=== PATIENT | female | born 2000 | race Caucasian/White ===

== ENCOUNTER 2024-06-05 10:44 | Outpatient (CLI) | payer BC, SELFPAY ==
--- NOTE | ~2024-06-05 | US_ITS ---
US breast BI complete INDICATION: White nipple discharge. No family history of breast cancer. TECHNIQUE: Dedicated bilateral complete breast ultrasound including all 4 quadrants in the subareolar locations COMPARISON: No prior studies for comparison. FINDINGS: The breasts are composed of normal heterogeneous echotexture without focal solid or cystic mass. IMPRESSION: 1: Normal bilateral breast ultrasound. BI-RADS CATEGORY 1 - NEGATIVE Reviewed, dictated and finalized at location B.
== END 2024-06-05 10:45 ==
PROVIDERS: PCP Nurse Practitioner; Visit Provider Nurse Practitioner
DX: N64.52 Nipple discharge (principal)
CPT/HCPCS: 76641

== ENCOUNTER 2024-08-11 08:43 | Outpatient (CLI) | payer BC, SELFPAY ==
[2024-08-15 00:38] LABS: Prolactin 14.6 ng/mL
== END 2024-08-11 08:44 | disposition home or self-care (01) ==
PROVIDERS: PCP Nurse Practitioner; Visit Provider Surgery
DX: N64.3 Galactorrhea not associated with childbirth (principal)
CPT/HCPCS: 36415; 84146; 84443

== ENCOUNTER 2024-12-16 18:39 | Emergency (ER) | payer OTHER, SELFPAY ==
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
[2024-12-16 19:00] VITALS: BP 111/70; PULSE 96; RESP 18; TEMP 36.8; O2SAT 100
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
[2024-12-16] MEDS: IBUPROFEN 600 MG TABLET PO (20:01)
[2024-12-16 20:32] VITALS: BP 115/71; PULSE 92; RESP 17; O2SAT 99
--- OUTSIDE RECORDS SUMMARY | 2024-12-18 20:21 | XMS_ITS | Data Portability ---
Author Organization [facility] Address [address] [place] [address] Assessment No assessment recorded. Plan of Treatment Reminders Order Date Submit Date Provider Last Modified By Organization Details Last Modified Time Details Appointments None recorded. Lab prolactin, serum 2023 [facility] (Lab), [address], [place], [address], 4 11:59:07 beta-HCG, quantitati ve, serum or plasma 2023 024 [facility] (Lab), [address], [place], [address], 4 11:59:06 Referral None recorded. Procedures None recorded. Surgeries None recorded. Imaging US, breast, bilateral - bilateral nipple discharge 2023 024 [facility], [address], [place], [address], 4 11:21:18 Medication Orders None recorded. Patient TargetsNo targets recorded. Patient InstructionsNo instructions recorded. Reason for Referral None Reported. Results Created Date Observation Date Name Description Value Unit Range Abnormal Flag Note LastModifiedBy Organization Detail LastModifiedTime 06/02/20 24 06/02/2024 BHCG, QUANT ITATI VE B-HCG <0.2 mIU/m L This assay was perfo rmed using [employer] reage nts and test kits. Value s obtai evangelista with other assay metho ds or kits canno t be used [facility] . Refer ence Range s: Non-p regna nt, preme nopau jose women : 0.0-5 .3 mIU/m L Postm enopa usal women : 0.0-7 .0 mIU/m L Bijal l Pregn arie: Gesta samantha l Age bHCG Conc. - mIU/m L 3 Weeks 5.8 - 71.7 4 Weeks 9.5 - 750 5 Weeks 217-7 138 6 Weeks 158 - 31,79 5 7 Weeks 3,697 - 162,5 63 8 Weeks 32,06 5 - 149,5 71 9 Weeks 63,80 3 - 151,4 10 10 Weeks 46,50 9 - 186,9 77 12 Weeks 27,83 2 - 210,6 12 14 Weeks 13,95 0 - 62,53 0 15 Weeks 12,03 9 - 70,97 1 16 Weeks 9,040 - 56,45 1 17 Weeks 8,175 - 55,86 8 18 Weeks 8,099 - 58,17 6 Not Available [facility] (Lab) [address] [place], [address], 06/03/2024 11:59:06 06/02/20 24 06/02/2024 PROLA CTIN prolactin, total 24.30 NG/mL 4.79-2 3.30 high This assay was perfo rmed using [employer] reage nts and test kits. Value s obtai evangelista with other assay metho ds or kits canno t be used [facility] . Not Available [facility] (Lab) [address] [place], [address], 06/03/2024 11:59:07 06/05/20 24 06/05/2024 PROLA CTIN prolactin, total 15.70 NG/mL 4.79-2 3.30 This assay was perfo rmed using [employer] reage nts and test kits. Value s obtai evangelista with other assay metho ds or kits canno t be used [facility] . Not Available [facility] (Lab) [address] [place], [address], 06/06/2024 07:22:06 06/06/20 24 06/05/2024 US, breas t, bilat eral No observ ation record ed. [facility] [address], [place], [address], 06/10/2024 14:48:40 12/17/19 25 12/16/2024 imagi ng/di agnos tic resul t No observ ation record ed. [address], [place], [address], 12/17/2024 09:30:21 Result Notes None recorded. Procedures Surgical History Date Name Laterality Status Provider Name and Address Organization Details Recorded Time extraction of wisdom tooth completed Claire [facility] 06/02/2024 12:46:45 Imaging Results Imaging Date Name Status LastModified by Organiz ation Details LastModified Time 06/05/2024 US, breast, bilateral completed [facility] [address], [place], [address], 06/10/2024 14:48:40 12/16/2024 imaging/diagno stic result active [address], [place], [address], 12/17/2024 09:30:21 Procedure Notes None recorded. Medical Equipment None Reported. Allergies No known drug allergies Medications Name Sig Start Date Stop Date Status Note LastModified by Organization Details LastModified Time iron active Not Available Not Availa ble Not Available Vitals Date Recorded Body height Body mass index (BMI) Body weight Systolic blood pressure Diastolic blood pressure Provider Name and Address Organization Details Last Updated DateTime 06/02/2024 154.94 cm 22.5 kg/m2 01763.49 g 108 mm[Hg] 70 mm[Hg] Claire Wang [facility] 12:42:07 Social History Question Answer Notes LastModified by Organizat ion Details LastModified Time Tobacco Smoking Status Current Every Day Smoker vape Claire Wang [facility] 06/02/2024 12:45:49 What Is Your Level Of Alcohol Consumption? Occasional Information not available 06/02/2024 In The 14 Days Before Symptom Onset, Have You Had Close Contact With A Laboratory-confir med COVID-19 While That Case Was Ill? No Information not available 06/02/2024 In The 14 Days Before Symptom Onset, Have You Had Close Contact With A Person Who Is Under Investigation For COVID-19 While That Person Was Ill? No Information not available 06/02/2024 Have You Been To An Area Known To Be High Risk For COVID-19? No Information not available 06/02/2024 Do You Use Any Illicit Or Recreational Drugs? Yes [place] Information not available 06/02/2024 Sex: Unknown Functional Status None recorded. Mental Status None recorded. Family History Relationship Description Onset Age of this Age Resolved Age Notes LastModified by Organization Details LastModified Time Mother Malignant tumor of oral cavity Not available 06/2024 12:45:28 Medical History Condition Response Anemia Y Gynecological History Statement/Question Response Date of Last Mammogram Date of LMP 05/25/2024 On BCP's at Conception? N Was last menstrual period normal Y STIs/STDs N HPV Vaccine N Colposcopy Age at First Child 20 Are cycles usually normal Y Date of Last Colonoscopy Sexually Active? Y Menses Monthly Y Date of DEXA bone scan Age of first menstrual cycle 14 Date of Last Pap Smear Sexual Problems? N LMP Definite Obstetrics History GPAL:G 1 P 0 0 0 1 Type Value Living 1 Total 1 Past Encounters Encounter ID Performer Location Encounter Start Date Encounter Closed Date Diagnosis/Indication Diagnosis SNOMED-CT Code Diagnosis ICD10 Code Diagnosis Note [id number] MARIA DEL CARMEN [facility] [place] [address] [address] 06/02/2024 12:22:12 06/02/2024 14:10:54 Discharge from nipple [id number] N64.52 Detailed health hx obtained and reviewed todaylabs orderedbil ateral breast u/s ordered : encouraged to scheduleen couraged to schedule WWE Time spent in visit is a total of 20 mins with at least 50% of visit consisting of counseling and review of plan of care. Health Concerns Section Related Observation LastModified by Organization Detai ls LastModified Time None Recorded Concern Status LastModified by Organization Details LastModified Time None Recorded Advance Directives Directive None Recorded Payers Encounter Date Sequence Insurance Name Policy Number Policy Huerta Covered Member ID Huerta Member ID Guarantor Name 06/02/2024 1 [employer] ([employer]) [id number] [facility] [id number] [facility] Notes Date Note Type Note Provider Name and Address Organization Details Recorded Time 4 text/html 24yo [id number] for evaluation of nipple dischargebilateral nipple discharge x 1 monthoccurs with nipple stimulation, clear/cloudybreastfed for 5 months last in 2019no lumps or painLMP 05/25/24, withdrawal for BCdrinks about 1 caffeinated beverage per day pap last 2020 - normal per pt MARIA DEL CARMEN [facility] [address], [place], [address], [facility] 06/02/2024 13:48:13 OBGyn Episode Ob Episode Information Episode Created Date Number of Fetuses Patient Bloodtype Patient rh Status Prepregnancy Weight lbs Domestic Partner Domestic Partner Phone Father Name Recruiting And Selection Consultant Status 06/02/20 24 1 CLOSED Fetus Data First Name Last Name Admitted to NICU Weight (g) Sex Living Outcome Pediatric Complications Fetus ID Race Codes Race Delivery Type M Full Term [id number] Vaginal Delivery Yunior Calculation Initial Yunior Date Initial Exam Date Initial Exam Provider Initial Ultrasound Date Last Menstrual Period Date Ultra Sound Weeks Gestation 0 Eighteen To Twenty Week Yunior Update Ultra Sound Date Fundal Height At Umbil Quickening Date Ultra Sound Latest Weeks Gestation Final Yunior Confirmed By Final Yunior Confirmed Date Final Yunior Date Ultra Sound Latest Days Gestation 0 0 Menstrual History Last Menstrual Date Menses Monthly On Bcp Conception Prior Menses Frequency Hcg Plus Date Menarche Onset Age Delivery Information Delivery Date Delivery Type Labor Anesthesia Weeks Gestation Incision Type Labor Labor Length Hrs Delivered By Post Complications Tubal Sterilization Discharge Date Comments 0 Discharge Information Feeding Method Contraceptive Method Maternal HG B and HCT Levels
== END 2024-12-16 20:34 | disposition home or self-care (01) ==
PROVIDERS: Emergency Provider Emergency Medicine; PCP Nurse Practitioner
DX: S29.012A Strain of muscle and tendon of back wall of thorax, initial encounter (principal); V89.2XXA Person injured in unspecified motor-vehicle accident, traffic, initial encounter; F17.290 Nicotine dependence, other tobacco product, uncomplicated
CPT/HCPCS: 72072; 99283; A9270